=== PATIENT | female | born 1970 | race Caucasian/White ===

== ENCOUNTER → 2017-12-20 | Outpatient (CLI) | payer OTHER ==
[~2017-12-20] MED LIST: LIDOCAINE/PRILOCAINE 2.5-2.5% KIT ONE
== END ==
LOC: WCC 08:44
PROVIDERS: ATTEND Plastic Surgery
DX: S91.002A Unspecified open wound, left ankle, initial encounter (principal); R60.0 Localized edema; I87.2 Venous insufficiency (chronic) (peripheral); I10 Essential (primary) hypertension; Y92.9 Unspecified place or not applicable

== ENCOUNTER → 2017-12-30 | Day surgery (SDC) | payer OTHER ==
[~2017-12-30] MED LIST changes: +BACITRACIN 50,000 UNIT VIAL ONE; +BACTROBAN15 G1 TOP; +CEFAZOLIN SOD 1 GM VIAL ONE; +CETIRIZINE HCL10 M1; +DEXAMETHASONE SOD PHOS INJ 4 MG/ML VIAL ONE; +EMLA TOP; +FENTANYL CITRATE/PF 100MCG/2 ML INJ ONE; +FLUOXETINE HCL20 M1 PO; +HYZAAR 50-12.51 EACH PO; +LIDOCAINE 1% W/EPINEPHRINE 20 ML VIAL ONE; +LIDOCAINE HCL 2% LOCAL INJ 5 ML SDV VIAL INJ ONE; -LIDOCAINE/PRILOCAINE 2.5-2.5% KIT ONE; +MEDROXYPROGESTE10 MG; +MELOXICAM7.5 MG PO; +MIDAZOLAM HCL 2 MG/2 ML VIAL ONE; +MULTI-VITAMIN1 EACH; +NATURE MADE IRON; +ONDANSETRON HCL INJ 2 MG/ML VIAL ONE; +PROPOFOL IV EMULSION 10 MG/ML 20 ML VIAL ONE; +SEVOFLURANE INHAL SOLN 250 ML PEN BTL ONE; +VITAMIN D2400 UNIT
--- OUTSIDE RECORDS SUMMARY | 2017-12-30 05:51 | XMS REPORT ---
Author [facility] Address Unknown Phone Unavailable Care Team Providers Care Assistant Portfolio Manager Name Role Phone Eber Harris Unavailable Unavailable GOPI Chan Unavailable Unavailable Problems This patient has no known problems. Allergies, Adverse Reactions, Alerts This patient has no known allergies or adverse reactions. Medications This patient has no known medications. Results Test Description Test Time Test Comments Text Results Atomic Results Result Comments 36631--CXIG PATH LEVEL 4 2017-11-22 09:16:00 RUN DATE: 11/22/17 [facility] LAB*Live* PAGE 1 RUN TIME: 915 Specimen Inquiry PATIENT: WESTON SELBY ACCT: [id number] LOC: [facility] U: [id number] AGE/SX: 46/F ROOM: RE11/18/17REG DR: Eber Harris MD : 1970 BED: DIS: STATUS: REG [facility] TLOC: SPEC : [id number] RECD: 11/19/17 STATUS: FAHAD ADLER NUM: [id number] LISA: 11/18/17 [facility] DR: Eber Harris MD ENTERED: 11/19/17 TYPE: INPATIENT [facility] DR: ORDERED: [id number] CODES: ANKLE, NOS PROCEDURES: 66047 (11/19/17) TISSUES: ANKLE, NOS - LEFT ANKLE CLINICAL HISTORY Pre-op Diagnosis: Non-healing wound, autoimmune suspected.Post-op Diagnosis: Non-healing wound, autoimmune suspected. DIAGNOSIS Left ankle, biopsy: - Small fragments of fibroconnective tissue and fibrinous material - No malignancy identified CPT 87483 GROSS DESCRIPTION The case is received in one part, labeled with the patient's name "Weston Selby" andaccession #[id number] accompanied by a requisition slip labeled with the patient's name andthe same accession number. The specimen is received in formalin, labeled "left ankle" and consists of a fragment oftan-white possible skin measuring 0.2 x 0.3 x 0.1 cm. The specimen is submitted entirely rbob single cassette. (ASW) MICROSCOPIC DESCRIPTION S ections show tiny fragments of fibroconnective tissue and fibrinous material. No intactepidermis is present for evaluation. No malignancy is identified in this small biopsy. Signed (signature on file) Malia Angeles MD 11/22/17 0916 END OF REPORT Gram stain 2017-11-21 10:08:00 NO ORGANISMS SEEN (test code=NO ORGAN) . NO WBCS SEEN (test code=NO WBCS) . Primary Language EnglishBacterial culture w [id number] 10:08:00* Test Item Value Reference Range Comments Bacterial culture w ID (test yjpy=5215-1) 1+MIXED SKIN DUARTE. Bacterial culture w ID (test hple=2897-79) Isolated from broth only Primary Language EnglishExtremity Venous Uni [id number] 10:22:00[place] [address] [facility] REPORT Name: WESTON SELBY Acct Number: [id number] :1970 Age:46 Sex:F Ord Phys: Eber Harris MD U nit Number: [id number] [facility] [address]: Eber Harris MD Status: REG R [facility] Exam Date: 11/02/17 EXAM D ESCRIPTION: VAS - Extremity Venous Uni Ltd - 11/02/2017 10:17 am CLINICAL HISTORY: M86.071 Leg swelling and edema. COMPARISON: Extremity Venous Uni Ltd dated 01/19/2017 FINDINGS: Left lower extremity venous system was interrogated with Doppler technique. Normal flow, compressibility and augmentati on was noted. There is no DVT present. IMPRESSION: No evidence of left lo wer extremity deep venous thrombosis. Signed By: Garrett Reese MD [facility] AT: 11/02/17 1022 Anaerobic [id number] 09:41:00Primary Language EnglishNO ANAEROBES GROWN.^NO ANAEROBES GROWN.^LGram [id number] 09:41:00* Test Item Value Reference Range Comments NO ORGANISMS SEEN (test code=NO ORGAN) . NO WBCS SEEN (test code=NO WBCS) . Primary Language EnglishGram [id number] 09:09:00* Test Item Value Reference Range Comments NO ORGANISMS SEEN (test code=NO ORGAN) . NO WBCS SEEN (test code=NO WBCS) . Primary Language EnglishBacterial culture w [id number] 09:09:00* Test Item Value Reference Range Comments Bacterial culture w ID (test hlpi=4786-5) NO GROWTH Primary Language EnglishFoot Left 2 [id number] 17:26:00[place] [address] [facility] REPORT Name: WESTON SELBY Acct Number: [id number] :1970 Age:46 Sex:F Ord Phys: Eber Harris MD Unit Number: [id number] [facility] Dr: Status: REG [facility] Exam Date: 10/14/17 EXAM DESCRIPTION: RAD - Foot Left 2 View - 10/14/2017 5:09 pm CLINICAL HISTORY: M86.071 MERA RISON: None. FINDINGS: No fracture, dislocation or periosteal reaction. Mild joint space narrowing present at the first MTP joint. Joint space narrowing involves the second- fifth IP joints. Small plantar spur is similar to 2010. La rger Achilles spur has enlarged since 2009. The lower leg soft tissue calcificat ions are addressed in the ankle report. No air or foreign body in the soft tissues. IMPRESSION: Mild degenerative changes are present in the fo ot as detailed. No acute bone or joint finding. Signed By: Dimitri Coyne MD Signed AT: 10/14/17 1727 Ankle Left 2 [id number] 17:25:00[place] [address] [facility] REPORT Name: WESTON SELBY Acct Number: [id number] :1970 Age:46 Sex:F Ord Phys: Eber Harris MD Unit Number: [id number] [facility] Dr: Status: REG [facility] Exam Date: 10/14/17 EXAM DESCRIPTION: RAD - Ankle Left 2 View - 10/14/2017 5:10 pm CLINICAL HISTORY: M86.071 COMPARISON: January 2010 FINDINGS: No fracture, dislocation or periosteal reaction. No joint effusion seen. Narrowing of the tibiotalar joint space has developed since 2009. Degenerative spurring changes are present. Patient has large Achilles spur and small plantar spur. The Achilles spur has enlarged since 2009. Patient has numerous calcifications in the medial and posterior soft tissues. No periosteal reaction. No foreign body. Calcifications are nonspecific. Chronic venous insufficiency or trauma can generate this calcification pattern. There are additional long list of metabolic disorders that can result in soft tissue calcium deposition. These are new from 2009. IMPRESSION: Degenerative changes are present at the ankle joint as detailed. No acute or destructive bone or joint finding. Numerous soft tissue calcifications posterior and medial lower leg. Venous insufficiency, trauma and numerous metabolic disorders can generate a similar calcification pattern. Signed By: Dimitri Coyne MD Signed AT: 10/14/17 1726 Extremity Venous Uni [place] [address] Name: WESTON SELBY Phys: Cokoie Chan [facility] : 1970 Age: 46 Sex:F Acct: [id number] Loc: [facility] Exam Date: 01/19/17 Status: REG REF Radiology Number: Unit Number: [id number] EXAM DESCRIPTION: VASExtremity Venous Uni [facility]01/19/2017 3:13 pm CLINICAL HISTORY: left leg pain and swelling. COMPARISON: None. FINDINGS: Left common femoral, superficial femoral, popliteal and posterior tibial veins are compressible and demonstrate augmentation. Doppler demonstrates good flow. IMPRESSION: No evidence of deep venous thrombosis involving the left lower extremity. Signed By: Isauro Greer MD Signed AT: 01/19/17 6279
[2017-12-30 09:20] VITALS: BP 125/79
--- NOTE | 2017-12-30 13:44 | Operative Report ---
DATE OF PROCEDURE: December 30, 2017 PREOPERATIVE DIAGNOSIS: Wound, left leg, 5 cm2. POSTOPERATIVE DIAGNOSIS: Wound, left leg, 10 cm2 after debridement. PROCEDURES 1. Debridement of skin, subcutaneous tissue, and tendon, left leg wound. 2. Placement of allograft Integra. 3. Vacuum Assisted closure. ANESTHESIA: General. HISTORY: The patient is a 47-year-old female who has a prior history of an ORIF of the left lower leg. She has developed a wound on the left lower leg in the incision line that has been recalcitrant to healing by a wound care center. Patient was referred to ga and the risks, benefits, and alternatives of treatment of the proposed procedure have been explained to the patient in detail. PROCEDURE: Patient was marked preoperatively in the holding area. She was brought to the operating theater. After the induction of adequate general anesthesia, she was prepped and draped in a supine position and a time out was performed. The procedure was begun by sharply excising the wound edges for approximately 0.[address] around the edge of the wound. This incision was taken through the skin and subcutaneous tissues and the bleeding was controlled using the electrocautery. The incision was deepened all the way to the lateral extensor compartment and then the debrided tissues removed entirely. The superficial substance of the lateral tendons of the leg were also debrided sharply of devitalized tissue. At this point, the wound was pulse lavaged with several liters of antibiotic containing solution. Integra bilaminate allograft was then prepared per application integration architect's specifications. It was placed onto the wound and stapled in place. A negative pressure VAC was placed over the Integra and set for 150 mm of continuous negative pressure. The seal was noted to be satisfactory. The estimated blood loss of procedure was 10 to 15 mL. She tolerates the procedure well, brought to recovery room in satisfactory condition and discharged with a postoperative instruction sheet as well as a followup appointment. Job#: [id number] BUNNY
== END | disposition home or self-care (01) ==
LOC: EDBD → OR 05:49
PROVIDERS: ATTEND Plastic Surgery
DX: S81.802A Unspecified open wound, left lower leg, initial encounter (principal); M06.9 Rheumatoid arthritis, unspecified; I10 Essential (primary) hypertension; F32.9 Major depressive disorder, single episode, unspecified; X58.XXXA Exposure to other specified factors, initial encounter; Z88.2 Allergy status to sulfonamides; Z01.810 Encounter for preprocedural cardiovascular examination
CPT/HCPCS: 15002; 15271; 81025; 88305; 93005; 97605; J0690; J1100; J2001; J2250; J2405; Q4104; 88304

== ENCOUNTER → 2018-01-03 | Outpatient (CLI) | payer OTHER ==
[~2018-01-03] MED LIST changes: -BACITRACIN 50,000 UNIT VIAL ONE; -CEFAZOLIN SOD 1 GM VIAL ONE; -DEXAMETHASONE SOD PHOS INJ 4 MG/ML VIAL ONE; -FENTANYL CITRATE/PF 100MCG/2 ML INJ ONE; -LIDOCAINE 1% W/EPINEPHRINE 20 ML VIAL ONE; -LIDOCAINE HCL 2% LOCAL INJ 5 ML SDV VIAL INJ ONE; -MIDAZOLAM HCL 2 MG/2 ML VIAL ONE; -ONDANSETRON HCL INJ 2 MG/ML VIAL ONE; -PROPOFOL IV EMULSION 10 MG/ML 20 ML VIAL ONE; -SEVOFLURANE INHAL SOLN 250 ML PEN BTL ONE
== END ==
LOC: EDBD → WCC 11:24
PROVIDERS: ATTEND Plastic Surgery
DX: S91.002A Unspecified open wound, left ankle, initial encounter (principal); R60.0 Localized edema; I87.2 Venous insufficiency (chronic) (peripheral); I10 Essential (primary) hypertension; Y92.9 Unspecified place or not applicable

== ENCOUNTER → 2018-01-17 | Outpatient (CLI) | payer OTHER ==
[~2018-01-17] MED LIST changes: +LIDOCAINE VISC 2% SOLN 15 ML UDC ONE
== END ==
LOC: EDBD → WCC 09:58
PROVIDERS: ATTEND Plastic Surgery
DX: S91.002A Unspecified open wound, left ankle, initial encounter (principal); R60.0 Localized edema; I10 Essential (primary) hypertension; I87.2 Venous insufficiency (chronic) (peripheral); Y92.9 Unspecified place or not applicable

== ENCOUNTER → 2018-01-31 | Outpatient (CLI) | payer OTHER ==
[~2018-01-31] MED LIST changes: -LIDOCAINE VISC 2% SOLN 15 ML UDC ONE
== END ==
LOC: EDBD → WCC 10:00
PROVIDERS: ATTEND Plastic Surgery
DX: S91.002A Unspecified open wound, left ankle, initial encounter (principal); I10 Essential (primary) hypertension; I87.2 Venous insufficiency (chronic) (peripheral); R60.0 Localized edema; Y92.9 Unspecified place or not applicable

== ENCOUNTER → 2018-02-14 | Outpatient (CLI) | payer OTHER ==
[~2018-02-14] MED LIST changes: +LIDOCAINE/PRILOCAINE 2.5-2.5% KIT ONE; +MINERAL OIL/PETROLAT/GLYCERI 6OZ BTL ONE; +MUPIROCIN 2% OINT 22 GM TUBE ONE
== END ==
LOC: EDBD → WCC 09:59
PROVIDERS: ATTEND Plastic Surgery
DX: S91.002A Unspecified open wound, left ankle, initial encounter (principal); R60.0 Localized edema; I10 Essential (primary) hypertension; I87.2 Venous insufficiency (chronic) (peripheral); Y92.9 Unspecified place or not applicable

== ENCOUNTER → 2018-02-22 | Day surgery (SDC) | payer OTHER ==
[2018-02-17 10:47] LABS: BLOOD UREA NITROGEN 11 mg/dL (7-26); BUN/CREATININE RATIO 16 (6-25); CALCIUM 9.6 mg/dL (8.4-10.2); CARBON DIOXIDE 27 mmol/L (22-29); CHLORIDE 103 mmol/L (98-107); EST GLOMERULAR FILTRATION RATE > 60 ML/MIN (60-); GLUCOSE 180 mg/dL (74-118); SODIUM 140 mmol/L (136-145)
[~2018-02-22] MED LIST changes: +BACITRACIN 50,000 UNIT VIAL ONE; +BUPIVACAINE HCL 0.5% INJ 30 ML VIAL INJ ONE; +CEFAZOLIN SOD 1 GM/D5W 50ML 50 ML IV ONE; +DEXAMETHASONE SOD PHOS INJ 4 MG/ML VIAL ONE; +FENTANYL CITRATE/PF 100MCG/2 ML INJ ONE; +KETOROLAC TROMETHAMINE 30 MG/ML VIAL ONE; +LIDOCAINE HCL 2% LOCAL INJ 5 ML SDV VIAL INJ ONE; -LIDOCAINE/PRILOCAINE 2.5-2.5% KIT ONE; +MINERAL OIL STERILE 10ML VIAL ONE; -MINERAL OIL/PETROLAT/GLYCERI 6OZ BTL ONE; +ONDANSETRON HCL INJ 2 MG/ML VIAL ONE; +PROPOFOL IV EMULSION 10 MG/ML 20 ML VIAL ONE; +SEVOFLURANE INHAL SOLN 250 ML PEN BTL ONE
[2018-02-22 12:27] VITALS: BP 122/88
--- NOTE | 2018-02-22 12:55 | Operative Report ---
DATE OF PROCEDURE: February 22, 2018 PREOPERATIVE DIAGNOSIS: Wound, left leg, 15 cm squared. POSTOPERATIVE DIAGNOSIS: Wound, left leg, 15 cm squared. PROCEDURES 1. Excisional preparation of wound, left leg. 2. Split-thickness skin grafting and application of negative-pressure device. ANESTHESIA: General. INDICATIONS: The patient is a 47-year-old woman who has been undergoing staged reconstruction of a wound on the lateral aspect of the left leg. The patient had allograft placed that has now fully granulated and the wound is now amenable to split-thickness skin grafting. Risks, benefits, and alternatives of treatment were discussed with the patient, and she is prepared to undergo the procedures outlined. DETAILS OF PROCEDURE: Patient was marked preoperatively in the holding area. She was brought to the operating theater. After the induction of adequate general anesthesia, she was prepped and draped in a supine position. A time out was performed. The procedure was begun by excising the skin edges with a #15 blade. Once 1 to 2 mm of the skin edge had been removed, the wound was then curetted with a curette to remove all the colonized granulation tissue. The wound was then pulse lavaged with an antibiotic-containing solution. At this point, a split-thickness skin graft was harvested from the left anterolateral thigh and meshed in a 1-1/2 to 1 fashion. It was placed onto the wound bed and secured using 5-0 chromic sutures in an interrupted fashion. Xeroform gauze was placed over the wound and then the negative-pressure wound VAC device was placed and set for 150 mm of continuous negative pressure. The seal was noted to be satisfactory. The left anterior thigh donor site was dressed with Xeroform gauze and a sterile dressing. Estimated blood loss for the procedure was 15 mL. She tolerated the procedure well and was brought to the recovery room in satisfactory condition and discharged with a postoperative instruction sheet as well as a followup appointment. Job#: [id number]
== END | disposition home or self-care (01) ==
LOC: EDBD → OR 08:16 → EDBD 09:30
PROVIDERS: ATTEND Plastic Surgery
DX: S91.002D Unspecified open wound, left ankle, subsequent encounter (principal); Z88.2 Allergy status to sulfonamides; Z86.718 Personal history of other venous thrombosis and embolism; I10 Essential (primary) hypertension; F41.9 Anxiety disorder, unspecified; Z01.812 Encounter for preprocedural laboratory examination
CPT/HCPCS: 15002; 15100; 36415; 80048; 81025; J0690; J1100; J1885; J2001; J2405; J2704

== ENCOUNTER → 2018-02-28 | Outpatient (CLI) | payer OTHER ==
[~2018-02-28] MED LIST changes: -BACITRACIN 50,000 UNIT VIAL ONE; -BUPIVACAINE HCL 0.5% INJ 30 ML VIAL INJ ONE; -CEFAZOLIN SOD 1 GM/D5W 50ML 50 ML IV ONE; -DEXAMETHASONE SOD PHOS INJ 4 MG/ML VIAL ONE; -FENTANYL CITRATE/PF 100MCG/2 ML INJ ONE; -KETOROLAC TROMETHAMINE 30 MG/ML VIAL ONE; -LIDOCAINE HCL 2% LOCAL INJ 5 ML SDV VIAL INJ ONE; -MINERAL OIL STERILE 10ML VIAL ONE; -MUPIROCIN 2% OINT 22 GM TUBE ONE; -ONDANSETRON HCL INJ 2 MG/ML VIAL ONE; -PROPOFOL IV EMULSION 10 MG/ML 20 ML VIAL ONE; -SEVOFLURANE INHAL SOLN 250 ML PEN BTL ONE
== END ==
LOC: EDBD → WCC 12:04
PROVIDERS: ATTEND Plastic Surgery
DX: S91.002A Unspecified open wound, left ankle, initial encounter (principal); R60.0 Localized edema; I87.2 Venous insufficiency (chronic) (peripheral); I10 Essential (primary) hypertension; Y92.9 Unspecified place or not applicable

== ENCOUNTER → 2018-03-04 | Outpatient (CLI) | payer OTHER | LOC: WCC 14:57 | PROVIDERS: ATTEND Plastic Surgery | DX: S91.002A Unspecified open wound, left ankle, initial encounter (principal); R60.0 Localized edema; I87.2 Venous insufficiency (chronic) (peripheral); I10 Essential (primary) hypertension; Y92.9 Unspecified place or not applicable ==

== ENCOUNTER → 2018-03-10 | Outpatient (CLI) | payer OTHER | LOC: WCC 11:41 | PROVIDERS: ATTEND Plastic Surgery | DX: S91.002A Unspecified open wound, left ankle, initial encounter (principal); R60.0 Localized edema; I87.2 Venous insufficiency (chronic) (peripheral); I10 Essential (primary) hypertension; Y92.9 Unspecified place or not applicable ==

== ENCOUNTER → 2018-03-14 | Outpatient (CLI) | payer OTHER | LOC: WCC 15:07 | PROVIDERS: ATTEND Plastic Surgery | DX: S91.002A Unspecified open wound, left ankle, initial encounter (principal); R60.0 Localized edema; I87.2 Venous insufficiency (chronic) (peripheral); I10 Essential (primary) hypertension; Y92.9 Unspecified place or not applicable ==

== ENCOUNTER → 2018-04-01 | Outpatient (CLI) | payer OTHER | LOC: EDBD → WCC 13:06 | PROVIDERS: ATTEND Plastic Surgery | DX: S91.002A Unspecified open wound, left ankle, initial encounter (principal); I87.2 Venous insufficiency (chronic) (peripheral); R60.0 Localized edema; I10 Essential (primary) hypertension; Y92.9 Unspecified place or not applicable ==

== ENCOUNTER → 2018-04-04 | Outpatient (CLI) | payer OTHER | LOC: WCC 08:15 | PROVIDERS: ATTEND Plastic Surgery | DX: S91.002A Unspecified open wound, left ankle, initial encounter (principal); I87.2 Venous insufficiency (chronic) (peripheral); R60.0 Localized edema; I10 Essential (primary) hypertension; Y92.9 Unspecified place or not applicable ==